=== PATIENT | female | born 1995 | race Caucasian/White ===

== ENCOUNTER 2023-09-12 09:31 | Emergency (ER) | payer OTHER, SELFPAY ==
[2023-09-12 09:35] VITALS: BP 137/87; PULSE 77; RESP 16; O2SAT 100; BMI 30.4
[2023-09-12 10:28] LABS: Bilirubin Urine NEGATIVE (NEGATIVE); Blood Urine NEGATIVE (NEGATIVE); Clarity Urine CLEAR (CLEAR); Color Urine LT. YELLOW (YELLOW); Glucose Urine UA NEGATIVE (NEGATIVE); Ketones Urine NEGATIVE (NEGATIVE); Leukocyte Esterase Urine NEGATIVE (NEGATIVE); Nitrite Urine NEGATIVE (NEGATIVE); Protein Urine NEGATIVE (NEG/TRACE); Specific Gravity Urine <=1.005 (1.005-1.025); Urobilinogen Urine 0.2 EU/dL (0.2-1.0); pH Urine 5.5 (5.0-9.0)
[2023-09-12 10:32] LABS: Urine Microscopic Indicated NO
--- NOTE | 2023-09-12 10:34 | ED.PREGNANC1 ---
HPI - General Chief complaint: Urogenital-Female Stated complaint: EXPOSURE TO COMMUNICABLE DISEASE Time Seen by Provider: 09/12/23 09:44 Mode of arrival: walk-in History of Present Illness HPI Narrative: Coming to us with 2 weeks history of increasing vaginal discharge she denies any smell or any itching or any rash and she also mentioned that she have a new partner,, the patient denies any nausea vomiting abdominal pain of any fever or chills She is concerned about STD. . Related Data Previous Rx's Medication Instructions Recorded metronidazole 500 mg tablet 500 mg PO BID 7 days #14 tabs 09/12/23 Allergies Allergy/AdvReac Type Severity Reaction Status Date / Time No Known Drug Allergies Allergy Verified 09/12/23 09:39 Review of Systems ROS Status of ROS 10 or more systems reviewed and unremarkable except as noted in history and below Exam Narrative Exam Narrative: Nurses notes and vital signs reviewed and patient is not hypoxic. General: Well-appearing and in no apparent distress. Skin: Warm, dry, no pallor noted. No rash. Head: Normocephalic, atraumatic. Neck: Supple, non-tender. Eye: Pupils are equal, round and EOMI. No scleral icterus. Ears, Nose, Mouth, and Throat: TM are clear, no nasal mucosal hypertrophy. Oral mucosa is moist, no posterior oropharynx erythema, uvula is mid-line Cardiovascular: Regular Rate and Rhythm without murmur, gallop or rub. Respiratory: No accessory muscle use or respiratory distress. Lungs are clear to auscultation, no wheezing, rales or rhonchi Chest Wall: no tenderness Back: No midline thoracic or lumbar vertebral tenderness. No CVA tenderness Musculoskeletal: normal ROM, no calf or popliteal tenderness, no lower extremity edema/swelling GI: Abdomen is soft, non-distended. Normal bowel sounds. No masses appreciated. No tenderness to palpation. No rebound, guarding, or rigidity noted. Neurological: A&O x4. No cranial nerve dysfunction observed. No truncal ataxia. Moves all extremities. Sensation intact. Psychiatric: Cooperative and interactive. Normal mood and affect. Constitutional Vital Signs, click to edit/add: Last Vital Signs Pulse 77 09/12/23 09:35 Resp 16 09/12/23 09:35 BP 137/87 09/12/23 09:35 Pulse Ox 100 01/07/24 09:35 O2 Del Method Room Air 09/12/23 09:35 Course Vital Signs Vital signs: Vital Signs Pulse Rate 77 09/12/23 09:35 Respiratory Rate 16 09/12/23 09:35 Blood Pressure 137/87 09/12/23 09:35 Pulse Oximetry 100 09/12/23 09:35 Oxygen Delivery Method Room Air 09/12/23 09:35 Pulse Rate 77 09/12/23 09:35 Respiratory Rate 16 09/12/23 09:35 Blood Pressure 137/87 09/12/23 09:35 Pulse Oximetry 100 09/12/23 09:35 Oxygen Delivery Method Room Air 09/12/23 09:35 MDM - OB/Uterine Contractions MDM Narrative Medical decision making narrative: The patient urinalysis showed no acute pathology and the test is negative they will be sent for chlamydia and gonorrhea testing at the moment but the patient will be covered with Flagyl for possible bacterial vaginosis. Patient will be called for the results of the urine in case positive , the patient also was instructed about the importance of following up with her primary care doctor for the other STDs including HIV and syphilis The patient is to follow up with primary care physician in next 2-3 days or to return to the emergency department should any of the signs or symptoms worsen or new symptoms develop. The patient agrees with the following Diagnosis and Treatment plan and the patient will be discharged home. Lab Data Labs: Lab Results 09/12/23 Range/Units 10:17 Urine Color Lt. yellow (YELLOW) Urine Clarity Clear (CLEAR) Urine pH 5.5 (5.0-9.0) Ur Specific [place] <=1.005 A (1.005-1.025) Urine Protein Negative (NEG/TRACE) mg/dL Urine Glucose (UA) Negative (NEGATIVE) mg/dL Urine Ketones Negative (NEGATIVE) mg/dL Urine Occult Blood Negative (NEGATIVE) Urine Nitrite Negative (NEGATIVE) Urine Bilirubin Negative (NEGATIVE) Urine Urobilinogen 0.2 (0.2-1.0) EU/dL Ur Leukocyte Esterase Negative (NEGATIVE) Urine HCG, Qual Negative (NEGATIVE) Discharge Plan Discharge Chief Complaint: Urogenital-Female Clinical Impression: Vaginal discharge Patient Disposition: Home, Self-Care Time of Disposition Decision: 10:38 Condition: Good Prescriptions / Home Meds: New metronidazole 500 mg tablet 500 mg PO BID 7 Days Qty: 14 0RF Instructions: Vaginal Discharge (ED) Stand Alone Forms: Portal Instructions Referrals: Physician,Non-Staff, MD [Primary Care Provider] - 1 week
[2023-09-12 10:36] LABS: HCG Qualitative Urine* NEGATIVE (NEGATIVE)
[2023-09-14 22:07] LABS: Neisseria gonorrhoeae, NAA Negative (Negative)
== END 2023-09-12 10:45 | disposition home or self-care (01) ==
PROVIDERS: Emergency Provider Emergency Medicine
DX: N89.8 Other specified noninflammatory disorders of vagina (principal)
CPT/HCPCS: 81003; 84703; 87491; 87591; 99283